=== PATIENT | female | born 1965 | race Caucasian/White ===

== ENCOUNTER 2018-04-19 09:50 | Day surgery (SDC) | payer OTHER ==
[~2018-04-19 09:50] MED LIST: CHONDR SU A NA/HYALUR INTRAOC KIT (SURGICARE) ONE; EPINEPHRINE INJ/PF 1 MG/1 ML AMPULE ONE; KETOROLAC TROMETHAMINE 0.45% 4 DROP/0.4 ML DROPERETTE OD PRN; LIDOCAINE 1%/PHENYLEPHRINE 1.5% 1 ML VIAL ONE
[2018-04-19] MEDS: CYCLOPENTOLATE 0.2%/PHENYLEPHRINE 1% OPH SOLN 2 ML OD PRN ×3 (11:22→11:36)
[2018-04-19] MEDS: BESIFLOXACIN HCL 0.6% OPH SUSP 5 ML BOTTLE OD PRN ×3 (11:22→12:18)
[2018-04-19] MEDS: TETRACAINE HCL 0.5% OPH SOLN 4 ML OD PRN ×3 (11:22→11:52)
[2018-04-19] MEDS: TROPICAMIDE 1% OPH SOLN 3 ML OD PRN ×3 (11:22→11:36)
[2018-04-19] MEDS ORDERED: FENTANYL CITRATE INJ/PF 100 MCG/2 ML AMPUL ONE (11:57)
[2018-04-19] MEDS ORDERED: MIDAZOLAM 2 MG/2 ML INJ ONE (11:57)
--- NOTE | 2018-04-19 13:16 | [facility] OPERATIVE REPORT E ---
[facility] Operative Report NAME: BARTOLOME MARTINEZ AGE: 52Y DATE OF SURGERY: 04/19/2018 ROOM: PREOPERATIVE DIAGNOSIS: CATARACT, RIGHT EYE. POSTOPERATIVE DIAGNOSIS: CATARACT, RIGHT EYE. OPERATION: Cataract extraction with insertion of an IOL of the right eye. SURGEON: LISA GREENBERG M.D. ANESTHESIA: Topical. PROCEDURE: After obtaining appropriate consent, the patient's right eye was prepped and draped in sterile fashion as well as the surgeon in a sterile manner and cataract surgery was started. First a paracentesis blade was used to make a side-port incision. Viscoelastic was used to inflate the anterior chamber. Next a 2.4 mm incision was made with a 2.4 mm blade, clear corneal temporally. A continuous capsulorrhexis was made using a cystotome and Utrata forceps. Following this hydrodissection was carried out to make the lens fully loose and mobile and it was rotated 90 degrees. Following this, a rsmdte-vwf-faclnnj technique was used to phacoemulsify the lens with a CDE of 6.14. The remaining cortex was removed with irrigation/aspiration. Provisc was instilled into the capsular bag to inflate the bag. A SN60WF, 21.5 diopter lens was placed. The remaining viscoelastic material was removed with irrigation/aspiration. Following this, the incision was found to be watertight. Besivance was instilled into the eye and a protective shield was placed over the eye. The patient returned to the postoperative recovery in stable condition. DICTATING PHYSICIAN: LISA GREENBERG M.D. [id number] PHY#: [id number] ID: [id number] JOB#: [id number] ACCT: [id number] cc:LISA GREENBERG M.D. >
--- NOTE | 2018-04-19 13:16 | [facility] DISCHARGE SUMMARY E ---
[facility] Discharge Summary NAME: BARTOLOME MARTINEZ AGE: 52Y ADMITTED: 04/19/2018 DISCHARGED: 04/19/2018 DIAGNOSIS: Cataract, right eye. SUMMARY: This is a 52-year-old female who underwent cataract extraction of the right eye. She underwent surgery because she was having trouble seeing road signs, words on the television, and small print. DISCHARGE INSTRUCTIONS: She should be on a regular diet, no bending at her waist, no heavy lifting. She should use her Besivance, Ilevro, and Durezol at 3 p.m. and 8 p.m. and sleep with a rigid shield. I will see her for her 1-day postoperative tomorrow. DICTATING PHYSICIAN: LISA GREENBERG M.D. [id number] PHY#: [id number] ID: [id number] JOB#: [id number] ACCT: [id number] cc:LISA GREENBERG M.D. >
== END 2018-04-19 13:05 | disposition home or self-care (01) ==
LOC: SC 09:50
PROVIDERS: ATTEND Internal Medicine
DX: H25.13 Age-related nuclear cataract, bilateral (principal); H57.03 Miosis; E03.9 Hypothyroidism, unspecified; E78.00 Pure hypercholesterolemia, unspecified; J45.909 Unspecified asthma, uncomplicated; M19.90 Unspecified osteoarthritis, unspecified site; F17.210 Nicotine dependence, cigarettes, uncomplicated; Z88.8 Allergy status to other drugs, medicaments and biological substances; Z88.3 Allergy status to other anti-infective agents; Z79.51 Long term (current) use of inhaled steroids
CPT/HCPCS: 66984; V2632; J2250; J3490 ×2; J0171; J3010; J2370; 142

== ENCOUNTER 2020-08-15 08:49 | Day surgery (SDC) | payer OTHER ==
[~2020-08-15 08:49] MED LIST changes: +FENTANYL CITRATE INJ/PF 100 MCG/2 ML AMPUL ONE; -KETOROLAC TROMETHAMINE 0.45% 4 DROP/0.4 ML DROPERETTE OD PRN; +KETOROLAC TROMETHAMINE 0.45% 4 DROP/0.4 ML DROPERETTE OS PRN; +MIDAZOLAM 2 MG/2 ML INJ ONE
--- OUTSIDE RECORDS SUMMARY | 2020-08-15 08:53 | XMS REPORT ---
:1965 [facility] [place] [address] [place] [address] Care Team Providers Name Role Phone Ayesha Song Attending Clinician Unavailable Ayesha Song Attending Clinician Unavailable Ioana Maki MD Attending Clinician Unavailable Ayesha Ponce Attending Clinician Unavailable Allergies, Adverse Reactions, Alerts Allergy Name Allergy Status Severity Reaction(s) Onset Inactive Treat ing Comments Type Date Date Clinician SIMVASTATIN Drug Active 2014-02 00:00:0 0 Medications This patient has no known medications. Problems This patient has no known problems. Procedures Procedure Date / Time Performed Performing Clinician Ashley sandoval OFFICE/OUTPATIENT VISIT EST 2019-12-04 10:15:00 OFFICE/OUTPATIENT VISIT EST 2019-06-01 09:15:00 OFFICE/OUTPATIENT VISIT EST 2019-05-03 10:15:00 OFFICE/OUTPATIENT VISIT EST 2018-08-26 13:30:00 OFFICE/OUTPATIENT VISIT EST 2018-02-10 10:30:00 OFFICE/OUTPATIENT VISIT EST 2017-04-28 09:45:00 GENERAL HEALTH PANEL 2014-09-20 12:00:00 ROUTINE VENIPUNCTURE 2014-09-20 12:00:00 LIPID PANEL 2014-09-20 12:00:00 OFFICE/OUTPATIENT VISIT, EST 2014-05-31 10:15:00 ROUTINE VENIPUNCTURE 2014-05-28 15:45:00 LIPID PANEL 2014-05-28 15:45:00 GENERAL HEALTH PANEL 2014-05-28 15:45:00 OFFICE/OUTPATIENT VISIT, EST 2014-02-23 10:00:00 LIPID PANEL 2014-01-18 14:30:00 ROUTINE VENIPUNCTURE 2014-01-18 14:30:00 HEPATIC FUNCTION PANEL 2014-01-18 14:30:00 VITAMIN B-12 2014-01-18 14:30:00 LIPID PANEL 2013-11-09 14:30:00 ROUTINE VENIPUNCTURE 2013-11-09 14:30:00 GENERAL HEALTH PANEL 2013-11-09 14:30:00 Results Test Description Test Time Test Comments Text Results Atomic Results Result Comments LIPID PANEL, STANDARD 2019-12-04 11:36:00 Test Item Value Reference Range Comments CHOL/HDLC RATIO (test code = 49416400) 2.7 (calc) <5.0 NON HDL CHOLESTEROL (test code = 69514989) 189 mg/dL (calc) <130 CHOLESTEROL, TOTAL (test code = 87343980) 298 mg/dL <200 HDL CHOLESTEROL (test code = 34746535) 109 mg/dL > OR = 50 LDL-CHOLESTEROL (test code = 60053759) 170 mg/dL (calc) TRIGLYCERIDES (test code = 52041920) 82 mg/dL <150 COMPREHENSIVE METABOLIC [id number] 11:36:00 Test Item Value Reference Range Comments CARBON DIOXIDE (test code = 14287081) 24 mmol/L 20-32 SODIUM (test code = 93380680) 083711 mmol/L 135-146 POTASSIUM (test code = 47268117) 4.1 mmol/L 3.5-5.3 ALT (test code = 81914402) 28 U/L 6-29 eGFR NON-AFR. COSTA RICAN (test code = 97 mL/min/1.73m2 > OR = 60 67583163) AST (test code = 05567693) 67 U/L 10-35 PROTEIN, TOTAL (test code = 76404387) 7.8 g/dL 6.1-8.1 ALBUMIN/GLOBULIN RATIO (test code = 1.5 (calc) 1.0-2.5 13708921) ALBUMIN (test code = 19435333) 4.74.7 g/dL 3.6-5.1 ALKALINE PHOSPHATASE (test code = 59 U/L 37-153 72406853) GLUCOSE (test code = 39184839) 58 mg/dL 65-99 CREATININE (test code = 25135150) 0.70 mg/dL 0.50-1.05 GLOBULIN (test code = 72817455) 3.1 g/dL (calc) 1.9-3.7 eGFR (test code = 112 mL/min/1.73m2 > OR = 60 79956644) UREA NITROGEN (BUN) (test code = 7 mg/dL 7-25 52519446) BUN/CREATININE RATIO (test code = NOT APPLICABLE (calc) 6-22 31172812) CALCIUM (test code = 55371863) 9.6 mg/dL 8.6-10.4 CHLORIDE (test code = 29498746) 9898 mmol/L 98-110 BILIRUBIN, TOTAL (test code = 0.6 mg/dL 0.2-1.2 37225104) [id number] 11:36:003.993.993.99CBC (INCLUDES DIFF/PLT)2019-12-04 11:36:00 Test Item Value Reference Range Comments ABSOLUTE BASOPHILS (test code = 55537549) 105 cells/uL 0-200 ABSOLUTE EOSINOPHILS (test code = 09084397) 133 cells/uL 15-5 00 MPV (test code = 81931037) 10.9 fL 7.5-12.5 ABSOLUTE NEUTROPHILS (test code = 77653193) 5748 cells/uL 1500 -7800 HEMATOCRIT (test code = 04846649) 41.6 % 35.0-45.0 LYMPHOCYTES (test code = 89430896) 29.3 % MCHC (test code = 53123217) 34.4 g/dL 32.0-36.0 NEUTROPHILS (test code = 07362727) 60.5 % ABSOLUTE MONOCYTES (test code = 23082138) 732 cells/uL 200-95 0 BASOPHILS (test code = 70659265) 1.1 % EOSINOPHILS (test code = 79321769) 1.4 % WHITE BLOOD CELL COUNT (test code = 9.5 Thousand/uL 3.8-10.8 72630564) MCH (test code = 63888386) 35.7 pg 27.0-33.0 HEMOGLOBIN (test code = 66103133) 14.3 g/dL 11.7-15.5 PLATELET COUNT (test code = 16161926) 184 Thousand/uL 140-400 MCV (test code = 29667588) 103.7 fL 80.0-100.0 MONOCYTES (test code = 27098391) 7.7 % RDW (test code = 63875295) 12.0 % 11.0-15.0 ABSOLUTE LYMPHOCYTES (test code = 84726133) 2784 cells/uL 850- 3900 RED BLOOD CELL COUNT (test code = 68577024) 4.01 Million/uL 3.80 -5.10 [id number] 11:47:002.012.01COMPREHENSIVE METABOLIC [id number] 11:47:00 Test Item Value Reference Range Comments GLUCOSE (test code = 55959361) 71 mg/dL 65-99 CALCIUM (test code = 59573071) 9.2 mg/dL 8.6-10.4 AST (test code = 53837399) 34 U/L 10-35 GLOBULIN (test code = 43503091) 2.9 g/dL (calc) 1.9-3.7 ALBUMIN (test code = 84618354) 4.1 g/dL 3.6-5.1 SODIUM (test code = 49399164) 140 mmol/L 135-146 ALBUMIN/GLOBULIN RATIO (test code = 1.4 (calc) 1.0-2.5 93464813) CHLORIDE (test code = 14838814) 104 mmol/L 98-110 eGFR NON-AFR. COSTA RICAN (test code = 87 mL/min/1.73m2 > OR = 60 40702171) POTASSIUM (test code = 86303320) 4.7 mmol/L 3.5-5.3 eGFR (test code = 101 mL/min/1.73m2 > OR = 60 88375828) CREATININE (test code = 78934858) 0.77 mg/dL 0.50-1.05 ALKALINE PHOSPHATASE (test code = 69 U/L 33-130 07578148) ALT (test code = 18951330) 18 U/L 6-29 PROTEIN, TOTAL (test code = 93952341) 7.0 g/dL 6.1-8.1 BUN/CREATININE RATIO (test code = NOT APPLICABLE (calc) 6-22 18658153) BILIRUBIN, TOTAL (test code = 0.7 mg/dL 0.2-1.2 64558452) CARBON DIOXIDE (test code = 17918672) 27 mmol/L 20-32 UREA NITROGEN (BUN) (test code = 7 mg/dL 7-25 67199773) CBC (INCLUDES DIFF/PLT)2019-05-03 11:47:00 Test Item Value Reference Range Comments EOSINOPHILS (test code = 12827605) 2.0 % ABSOLUTE MONOCYTES (test code = 43691851) 409 cells/uL 200-95 0 WHITE BLOOD CELL COUNT (test code = 6.6 Thousand/uL 3.8-10.8 41115442) MCV (test code = 91835988) 105.8 fL 80.0-100.0 ABSOLUTE EOSINOPHILS (test code = 91331767) 132 cells/uL 15-5 00 MCH (test code = 61086548) 36.2 pg 27.0-33.0 RED BLOOD CELL COUNT (test code = 69755446) 3.78 Million/uL 3.80 -5.10 HEMOGLOBIN (test code = 45583177) 13.7 g/dL 11.7-15.5 BASOPHILS (test code = 34960997) 1.1 % ABSOLUTE BASOPHILS (test code = 64477330) 73 cells/uL 0-200 NEUTROPHILS (test code = 45481017) 57.7 % MCHC (test code = 22408406) 34.3 g/dL 32.0-36.0 LYMPHOCYTES (test code = 70712925) 33.0 % PLATELET COUNT (test code = 00204272) 169 Thousand/uL 140-400 ABSOLUTE NEUTROPHILS (test code = 89508249) 3808 cells/uL 1500 -7800 ABSOLUTE LYMPHOCYTES (test code = 77827999) 2178 cells/uL 850- 3900 MONOCYTES (test code = 14885554) 6.2 % MPV (test code = 00691853) 10.8 fL 7.5-12.5 HEMATOCRIT (test code = 62154880) 40.0 % 35.0-45.0 RDW (test code = 31322174) 11.8 % 11.0-15.0 LIPID PANEL, [id number] 11:47:00 Test Item Value Reference Range Comments HDL CHOLESTEROL (test code = 04096020) 9999 mg/dL >50 CHOL/HDLC RATIO (test code = 34848674) 2.6 (calc) <5.0 TRIGLYCERIDES (test code = 91467175) 8787 mg/dL <150 CHOLESTEROL, TOTAL (test code = 93836041) 258 mg/dL <200 LDL-CHOLESTEROL (test code = 69704691) 140 mg/dL (calc) NON HDL CHOLESTEROL (test code = 39241022) 159 mg/dL (calc) <130 [id number] 14:40:005.56CBC (INCLUDES DIFF/PLT)2018-08-26 14:40:00 Test Item Value Reference Range Comments ABSOLUTE LYMPHOCYTES (test code = 71974460) 1433 cells/uL 850- 3900 BASOPHILS (test code = 55853666) 0.9 % MONOCYTES (test code = 53224779) 9.9 % MCV (test code = 21799899) 104.4 fL 80.0-100.0 PLATELET COUNT (test code = 28969208) 175 Thousand/uL 140-400 EOSINOPHILS (test code = 25873327) 0.9 % MPV (test code = 14218439) 10.8 fL 7.5-12.5 HEMOGLOBIN (test code = 12187949) 14.0 g/dL 11.7-15.5 ABSOLUTE MONOCYTES (test code = 71353770) 743 cells/uL 200-95 0 ABSOLUTE BASOPHILS (test code = 24444760) 68 cells/uL 0-200 MCH (test code = 97001268) 36.0 pg 27.0-33.0 ABSOLUTE EOSINOPHILS (test code = 09139760) 68 cells/uL 15-5 00 MCHC (test code = 18021568) 34.5 g/dL 32.0-36.0 NEUTROPHILS (test code = 11902297) 69.2 % ABSOLUTE NEUTROPHILS (test code = 91802025) 5190 cells/uL 1500 -7800 RDW (test code = 54905757) 11.7 % 11.0-15.0 LYMPHOCYTES (test code = 33526844) 19.1 % HEMATOCRIT (test code = 88246253) 40.6 % 35.0-45.0 WHITE BLOOD CELL COUNT (test code = 7.5 Thousand/uL 3.8-10.8 62647343) RED BLOOD CELL COUNT (test code = 31542038) 3.89 Million/uL 3.80 -5.10 COMPREHENSIVE METABOLIC [id number] 14:40:00 Test Item Value Reference Range Comments CHLORIDE (test code = 01365073) 99 mmol/L 98-110 eGFR NON-AFR. COSTA RICAN (test code = 95 mL/min/1.73m2 > OR = 60 49939999) UREA NITROGEN (BUN) (test code = 9 mg/dL 7-25 52279654) CREATININE (test code = 52637802) 0.72 mg/dL 0.50-1.05 ALBUMIN/GLOBULIN RATIO (test code = 1.5 (calc) 1.0-2.5 26388281) BILIRUBIN, TOTAL (test code = 0.7 mg/dL 0.2-1.2 62276598) SODIUM (test code = 39117163) 136 mmol/L 135-146 ALKALINE PHOSPHATASE (test code = 68 U/L 33-130 12593696) GLUCOSE (test code = 82399893) 126 mg/dL 65-99 ALBUMIN (test code = 64163011) 4.2 g/dL 3.6-5.1 PROTEIN, TOTAL (test code = 00920179) 7.0 g/dL 6.1-8.1 BUN/CREATININE RATIO (test code = NOT APPLICABLE (calc) 6-22 05610575) CALCIUM (test code = 06918097) 10.0 mg/dL 8.6-10.4 AST (test code = 94360923) 33 U/L 10-35 POTASSIUM (test code = 09403925) 4.2 mmol/L 3.5-5.3 CARBON DIOXIDE (test code = 27841519) 29 mmol/L 20-32 eGFR (test code = 579231 mL/min/1.73m2 > OR = 6 0 72159741) GLOBULIN (test code = 56151289) 2.8 g/dL (calc) 1.9-3.7 ALT (test code = 51568746) 16 U/L 6-29 LIPID PANEL, [id number] 14:40:00 Test Item Value Reference Range Comments CHOL/HDLC RATIO (test code = 33219967) 2.9 (calc) <5.0 CHOLESTEROL, TOTAL (test code = 31344529) 234 mg/dL <200 NON HDL CHOLESTEROL (test code = 27091585) 153 mg/dL (calc) <130 TRIGLYCERIDES (test code = 32645941) 85 mg/dL <150 LDL-CHOLESTEROL (test code = 93100871) 135 mg/dL (calc) HDL CHOLESTEROL (test code = 59255776) 81 mg/dL >50 COMPREHENSIVE METABOLIC [id number] 09:34:00 Test Item Value Reference Range Comments UREA NITROGEN (BUN) (test code = 10 mg/dL 7-25 02488711) eGFR NON-AFR. COSTA RICAN (test code = 80 mL/min/1.73m2 > OR = 60 76395711) ALT (test code = 40587365) 23 U/L 6-29 CALCIUM (test code = 99807580) 9.6 mg/dL 8.6-10.4 AST (test code = 69688270) 41 U/L 10-35 eGFR (test code = 93 mL/min/1.73m2 > OR = 60 69255175) GLOBULIN (test code = 70796368) 3.2 g/dL (calc) 1.9-3.7 GLUCOSE (test code = 40597035) 77 mg/dL 65-99 ALKALINE PHOSPHATASE (test code = 66 U/L 33-130 55736436) SODIUM (test code = 99602981) 143 mmol/L 135-146 ALBUMIN/GLOBULIN RATIO (test code = 1.4 (calc) 1.0-2.5 86281571) CHLORIDE (test code = 83989775) 106 mmol/L 98-110 ALBUMIN (test code = 39421078) 4.4 g/dL 3.6-5.1 CREATININE (test code = 03012488) 0.83 mg/dL 0.50-1.05 CARBON DIOXIDE (test code = 73056984) 29 mmol/L 20-32 PROTEIN, TOTAL (test code = 47189004) 7.6 g/dL 6.1-8.1 BILIRUBIN, TOTAL (test code = 0.6 mg/dL 0.2-1.2 42760798) POTASSIUM (test code = 84588250) 4.3 mmol/L 3.5-5.3 BUN/CREATININE RATIO (test code = NOT APPLICABLE (calc) 6-22 55746685) LIPID PANEL, [id number] 10:24:00 Test Item Value Reference Range Comments CHOL/HDLC RATIO (test code = 04422111) 2.6 (calc) <5.0 CHOLESTEROL, TOTAL (test code = 45943878) 812749 mg/dL <200 HDL CHOLESTEROL (test code = 27463367) 674496 mg/dL >50 NON HDL CHOLESTEROL (test code = 90348187) 167 mg/dL (calc) <130 TRIGLYCERIDES (test code = 62836421) 124 mg/dL <150 LDL-CHOLESTEROL (test code = 09856387) 142 mg/dL (calc) [id number] 10:24:004.534.53COMPREHENSIVE METABOLIC [id number] 10:24:00 Test Item Value Reference Range Comments ALT (test code = 79417164) 37 U/L 6-29 CHLORIDE (test code = 07828159) 107 mmol/L 98-110 PROTEIN, TOTAL (test code = 17281489) 7.4 g/dL 6.1-8.1 CARBON DIOXIDE (test code = 76003494) 28 mmol/L 20-31 BUN/CREATININE RATIO (test code = NOT APPLICABLE (calc) 6-22 79992889) CREATININE (test code = 28246359) 0.74 mg/dL 0.50-1.05 BILIRUBIN, TOTAL (test code = 0.7 mg/dL 0.2-1.2 28213148) ALKALINE PHOSPHATASE (test code = 54 U/L 33-130 72693144) UREA NITROGEN (BUN) (test code = 9 mg/dL 7-25 93861570) CALCIUM (test code = 24982058) 9.6 mg/dL 8.6-10.4 GLOBULIN (test code = 48322220) 3.1 g/dL (calc) 1.9-3.7 eGFR (test code = 106 mL/min/1.73m2 > OR = 60 02086059) SODIUM (test code = 92268940) 143 mmol/L 135-146 POTASSIUM (test code = 11120580) 4.1 mmol/L 3.5-5.3 GLUCOSE (test code = 59605962) 58 mg/dL 65-99 AST (test code = 18514527) 75 U/L 10-35 ALBUMIN/GLOBULIN RATIO (test code = 1.4 (calc) 1.0-2.5 04481946) eGFR NON-AFR. COSTA RICAN (test code = 92 mL/min/1.73m2 > OR = 60 62788936) ALBUMIN (test code = 26793615) 4.34.3 g/dL 3.6-5.1 CBC (INCLUDES DIFF/PLT)2018-02-24 10:24:00 Test Item Value Reference Range Comments ABSOLUTE LYMPHOCYTES (test code = 09120252) 2484 cells/uL 850- 3900 EOSINOPHILS (test code = 70744103) 2.1 % NEUTROPHILS (test code = 76196632) 54.6 % MPV (test code = 73747097) 10.4 fL 7.5-12.5 ABSOLUTE EOSINOPHILS (test code = 62209319) 151 cells/uL 15-5 00 HEMATOCRIT (test code = 35956687) 39.9 % 35.0-45.0 ABSOLUTE NEUTROPHILS (test code = 89245519) 3931 cells/uL 1500 -7800 HEMOGLOBIN (test code = 67120206) 13.4 g/dL 11.7-15.5 ABSOLUTE MONOCYTES (test code = 40330423) 540 cells/uL 200-95 0 MCH (test code = 81939115) 36.6 pg 27.0-33.0 RED BLOOD CELL COUNT (test code = 52792107) 3.66 Million/uL 3.80 -5.10 LYMPHOCYTES (test code = 59946525) 34.5 % PLATELET COUNT (test code = 28694797) 180 Thousand/uL 140-400 BASOPHILS (test code = 20049476) 1.3 % MONOCYTES (test code = 93255820) 7.5 % MCHC (test code = 19326277) 33.6 g/dL 32.0-36.0 RDW (test code = 48474894) 12.1 % 11.0-15.0 WHITE BLOOD CELL COUNT (test code = 7.2 Thousand/uL 3.8-10.8 80383313) ABSOLUTE BASOPHILS (test code = 91507082) 94 cells/uL 0-200 MCV (test code = 80562372) 109.0 fL 80.0-100.0 [id number] 00:01:00 Test Item Value Reference Range Comments TSH (test code = 267575) 2.59 mIU/L Lipid [id number] 00:01:00 Test Item Value Reference Range Comments LDL Cholesterol (Calc) (test code = 765541) 178 mg/dL <130 VLDL Cholesterol (Calc) (test code = 812480) 20 mg/dL <30 Triglycerides (test code = 527599) 98 mg/dL <150 Cholesterol (test code = 958254) 295 mg/dL 125-200 HDL Cholesterol (test code = 960730) 97 mg/dL >=46 Total Chol/HDL Ratio (test code = 536001) 3.0 Ratio <=5.0 CMP with Estimated [id number] 00:01:00 Test Item Value Reference Range Comments Chloride (test code = 517422) 102 mmol/L 98-110 Est GFR, (test code = 358463) >89 mL/min > =60 Glucose (test code = 277096) 70 mg/dL 65-99 Est GFR, NonAfrican Mongolian (test code = 497065) >89 mL/min >=60 Total Protein (test code = 767596) 7.4 g/dL 6.1-8.1 Calcium (test code = 932142) 9.9 mg/dL 8.6-10.4 Creatinine (test code = 350166) 0.65 mg/dL 0.50-1.05 Potassium (test code = 237080) 4.1 mmol/L 3.5-5.3 BUN (test code = 558140) 8 mg/dL 7-25 AST/SGOT (test code = 023812) 53 U/L 10-35 Bilirubin, Total (test code = 274491) 0.6 mg/dL 0.2-1.2 Alkaline Phosphatase (test code = 245639) 49 U/L 33-130 CO2 (test code = 846258) 28 mmol/L 20-31 Albumin (test code = 062781) 4.4 g/dL 3.6-5.1 Sodium (test code = 523839) 140 mmol/L 135-146 ALT/SGPT (test code = 108842) 27 U/L 6-29 CBC NO Diff (Complete Blood Count)2017-04-28 00:01:00 Test Item Value Reference Range Comments Platelet Count (test code = 104908) 190 K/uL 140-400 MCV (test code = 775891) 108.3 fL 80.0-100.0 Hematocrit (test code = 258681) 41.7 % 35.0-45.0 Hemoglobin (test code = 570025) 13.8 g/dL 11.7-15.5 MCHC (test code = 989803) 33.1 g/dL 32.0-36.0 MCH (test code = 723511) 35.8 pg 27.0-33.0 RDW (test code = 704671) 13.5 % 11.0-15.0 MPV (test code = 931531) 10.3 fL 7.5-12.5 WBC (test code = 512283) 7.6 K/uL 3.8-10.8 RBC (test code = 309431) 3.85 MIL/uL 3.80-5.10 Culture, [id number] 00:00:00 Test Item Value Reference Range Comments COLONY COUNT: (test code = CCT) NO GROWTH FINAL REPORT (test code = FR) NO GROWTH Fecal [id number] 00:01:00 Test Item Value Reference Range Comments LACTOFERRIN (test code = WBCSTL) NEGATIVE LACTOFERRIN (test code = WBCSTL6) NEGATIVE LACTOFERRIN (test code = WBCSTL7) NEGATIVE LACTOFERRIN (test code = WBCSTL8) NEGATIVE Fecal Occult Blood, [id number] 00:01:00 Test Item Value Reference Range Comments Fecal Occult Blood (test code = 298286) NEG Negative Fecal Occult Blood (test code = 4175547) NEG Negativ e Fecal Occult Blood (test code = 1327644) NEG Negativ e Culture, [id number] 00:01:00 Test Item Value Reference Range Comments FINAL REPORT (test code = No FR) Salmonella,Shigella,Campylobacte r,Yersinia,or PRELIM REPORT (test code = No Suspicious Colonies, [place]) Continuing to Hold Culture, [id number] 15:43:00 Test Item Value Reference Range Comments FINAL REPORT (test code = clinically indicated.predominant. FR) Suggest appropriate recollection ifMultiple bacterial morphotypes present, none COLONY COUNT: (test code = 25,000 COLONIES/ML CCT) LIPID [id number] 12:20:00 Test Item Value Reference Range Comments CHD (test code = CHD) 39.44 TGL (test code = TGL) 68 MG/DL 30-200 HDL (test code = HDL) 99 MG/DL 32-96 DLDL (test code = DLDL) 132 MG/DL 100-130 CHOL (test code = CHOL) 251 MG/DL 140-200 [id number] 12:20:00 Test Item Value Reference Range Comments WBC (test code = WBC) 7.7 K/UL 3.6-11.1 MCV (test code = MCV) 111 aH FL 79-95 PLT (test code = PLT) 193 K/UL 165-353 HGB (test code = HGB) 12.7 G/DL 11.4-14.4 RBC (test code = RBC) 3.47 L CU/MM 3.69-4.88 HCT (test code = HCT) 38.6 % 33.3-41.4 MCH (test code = MCH) 36.5 H PQ 26.8-33.2 RDW (test code = RDW) 14.5 % 12.0-15.1 MCHC (test code = MCHC) 32.8 G/DL 33.5-35.5 CHEM [id number] 12:20:00 Test Item Value Reference Range Comments GLU (test code = GLU) 61 MG/DL 70-110 BUN (test code = BUN) 10 MG/DL 7-18 CL (test code = CL) 105 MMOL/L 98-110 NA (test code = NA) 142 MMOL/L 136-145 ALB (test code = ALB) 3.5 G/DL 3.2-4.7 TP (test code = TP) 7.6 G/DL 6.9-8.5 EGFR (test code = EGFR) 80.39 >60.00 BILT (test code = BILT) 0.4 MG/DL 0.1-1.0 ALT (test code = ALT) 18 U/L 9-61 ION GAP (test code = ION GAP) 13 4-16 K (test code = K) 4.3 MMOL/L 3.5-5.1 CA (test code = CA) 8.7 MG/DL 8.5-10.1 GLOB (test code = GLOB) 4.1 1.9-4.5 BUN/CREAT RATIO (test code = BUN/CREAT RATIO) 13 10 -14 CO2 (test code = CO2) 28.8 MMOL/L 21.0-32.0 EGFRAA (test code = EGFRAA) 97.43 >60.00 CR (test code = CR) 0.8 MG/DL 0.4-1.3 ALK PHOS (test code = ALK PHOS) 52 U/L 50-136 AST (test code = AST) 27 U/L 9-37 [id number] 12:20:00 Test Item Value Reference Range Comments TSH (test code = TSH) 2.98 UIU/ML 0.50-5.80 LIPID [id number] 15:00:00 Test Item Value Reference Range Comments CHOL (test code = CHOL) 259 MG/DL 140-200 TGL (test code = TGL) 57 MG/DL 30-200 CHD (test code = CHD) 40.54 HDL (test code = HDL) 105 MG/DL 32-96 DLDL (test code = DLDL) 149 MG/DL 100-130 FREE [id number] 15:00:00 Test Item Value Reference Range Comments FT4 (test code = FT4) 0.61 NG/DL 0.75-1.54 CHEM [id number] 15:00:00 Test Item Value Reference Range Comments ION GAP (test code = ION GAP) 13 4-16 CL (test code = CL) 102 MMOL/L 98-110 GLU (test code = GLU) 82 MG/DL 70-110 ALT (test code = ALT) 23 U/L 9-61 K (test code = K) 4.4 MMOL/L 3.5-5.1 CA (test code = CA) 9.3 MG/DL 8.5-10.1 ALB (test code = ALB) 3.8 G/DL 3.2-4.7 BILT (test code = BILT) 0.5 MG/DL 0.1-1.0 BUN (test code = BUN) 11 MG/DL 7-18 ALK PHOS (test code = ALK PHOS) 61 U/L 50-136 CR (test code = CR) 0.8 MG/DL 0.4-1.3 TP (test code = TP) 7.9 G/DL 6.9-8.5 GLOB (test code = GLOB) 4.1 1.9-4.5 BUN/CREAT RATIO (test code = BUN/CREAT RATIO) 14 10 -14 CO2 (test code = CO2) 27.3 MMOL/L 21.0-32.0 EGFRAA (test code = EGFRAA) 97.55 >60.00 AST (test code = AST) 27 U/L 9-37 NA (test code = NA) 138 MMOL/L 136-145 EGFR (test code = EGFR) 80.49 >60.00 [id number] 15:00:00 Test Item Value Reference Range Comments TSH (test code = TSH) 6.36 UIU/ML 0.50-5.80 [id number] 15:00:00 Test Item Value Reference Range Comments HCT (test code = HCT) 38.2 % 33.3-41.4 HGB (test code = HGB) 12.6 G/DL 11.4-14.4 MCH (test code = MCH) 36.1 H PQ 26.8-33.2 RBC (test code = RBC) 3.48 L CU/MM 3.69-4.88 WBC (test code = WBC) 9.2 K/UL 3.6-11.1 RDW (test code = RDW) 13.9 % 12.0-15.1 MCHC (test code = MCHC) 32.9 G/DL 33.5-35.5 MCV (test code = MCV) 110 aH FL 79-95 PLT (test code = PLT) 193 K/UL 165-353 [id number] 14:37:00 Test Item Value Reference Range Comments B12 (test code = B12) 342 pg/mL 230-1050 LIVER [id number] 14:37:00 Test Item Value Reference Range Comments ALT (test code = ALT) 26 U/L 9-61 ALB (test code = ALB) 3.7 G/DL 3.2-4.7 ALK PHOS (test code = ALK PHOS) 63 U/L 50-136 BILT (test code = BILT) 0.5 MG/DL 0.1-1.0 AST (test code = AST) 35 U/L 9-37 TP (test code = TP) 7.7 G/DL 6.9-8.5 BILD (test code = BILD) 0.1 MG/DL 0.0-0.2 LIPID [id number] 14:37:00 Test Item Value Reference Range Comments CHD (test code = CHD) 49.56 DLDL (test code = DLDL) 95 MG/DL 100-130 TGL (test code = TGL) 37 MG/DL 30-200 CHOL (test code = CHOL) 228 MG/DL 140-200 HDL (test code = HDL) 113 MG/DL 32-96 [id number] 15:46:00 Test Item Value Reference Range Comments ION GAP (test code = ION GAP) 12 4-16 GLU (test code = GLU) 80 MG/DL 70-110 CA (test code = CA) 9.2 MG/DL 8.5-10.1 BUN (test code = BUN) 10 MG/DL 7-18 EGFR (test code = EGFR) 80.67 >60.00 ALK PHOS (test code = ALK PHOS) 62 U/L 50-136 GLOB (test code = GLOB) 4.4 1.9-4.5 CL (test code = CL) 102 MMOL/L 98-110 EGFRAA (test code = EGFRAA) 97.77 >60.00 ALT (test code = ALT) 22 U/L 9-61 NA (test code = NA) 137 MMOL/L 136-145 CR (test code = CR) 0.8 MG/DL 0.4-1.3 AST (test code = AST) 32 U/L 9-37 TP (test code = TP) 8.1 G/DL 6.9-8.5 BUN/CREAT RATIO (test code = BUN/CREAT RATIO) 13 10 -14 CO2 (test code = CO2) 27.6 MMOL/L 21.0-32.0 ALB (test code = ALB) 3.7 G/DL 3.2-4.7 K (test code = K) 4.2 MMOL/L 3.5-5.1 BILT (test code = BILT) 0.7 MG/DL 0.1-1.0 [id number] 15:46:00 Test Item Value Reference Range Comments WBC (test code = WBC) 8.2 K/UL 3.6-11.1 RBC (test code = RBC) 3.67 L CU/MM 3.69-4.88 HGB (test code = HGB) 13.0 G/DL 11.4-14.4 MCHC (test code = MCHC) 32.9 G/DL 33.5-35.5 PLT (test code = PLT) 164 L K/UL 165-353 MCV (test code = MCV) 108 aH FL 79-95 MCH (test code = MCH) 35.4 H PQ 26.8-33.2 HCT (test code = HCT) 39.5 % 33.3-41.4 RDW (test code = RDW) 13.4 % 12.0-15.1 [id number] 15:46:00 Test Item Value Reference Range Comments TSH (test code = TSH) 4.21 UIU/ML 0.50-5.80 LIPID [id number] 15:46:00 Test Item Value Reference Range Comments CHD (test code = CHD) 37.32 TGL (test code = TGL) 52 MG/DL 30-200 HDL (test code = HDL) 103 MG/DL 32-96 DLDL (test code = DLDL) 164 MG/DL 100-130 CHOL (test code = CHOL) 276 MG/DL 140-200 Assessments Condition Name Status Diagnosis Date Treating Clinici an Allergic rhinitis due to pollen Active Hyperlipidemia, unspecified Active Encntr screen mammogram for malignant Active neoplasm of breast Hypothyroidism, unspecified Active Low back pain Active Other chronic pain Active Sacrococcygeal disorders, not elsewhere Active classified Pain in thoracic spine Active Hyperlipidemia, unspecified Active Hypothyroidism, unspecified Active Pleurodynia Active Allergic rhinitis due to pollen Active Hypothyroidism, unspecified Active Hyperlipidemia, unspecified Active Allergic rhinitis due to pollen Active Asymptomatic menopausal state Active Mixed hyperlipidemia Active Hypothyroidism, unspecified Active Unspecified cataract Active Allergic rhinitis due to pollen Active Hyperlipidemia, unspecified Active Hypothyroidism, unspecified Active Encntr screen mammogram for malignant Active neoplasm of breast Allergic rhinitis due to pollen Active Hypothyroidism - Unspecified (acquired) Active Hyperlipidemia (Unspecified) Active Hypothyroidism - Unspecified (acquired) Active Hyperlipidemia (Unspecified) Active Asthma - Unspecified Active Pain - Back (Unspecified) Active Hypothyroidism - Unspecified (acquired) Active Hyperlipidemia (Unspecified) Active Allergic Reaction Active Hyperlipidemia (Unspecified) Active Abnormal - Clinical Findings Active Hyperlipidemia (Unspecified) Active Hypothyroidism - Unspecified (acquired) Active Hypothyroidism Active Asthma Active Hyperlipidemia Active Anxiety Active Hypothyroidism Active Asthma Active Hyperlipidemia Active Anxiety Active Hypothyroidism Active Asthma Active Hyperlipidemia Active Anxiety Active Hypothyroidism Active Asthma Active Hyperlipidemia Active Anxiety Active Hypothyroidism Active Asthma Active Hyperlipidemia Active Anxiety Active Hypothyroidism Active Asthma Active Hyperlipidemia Active Anxiety Active Encounters Start End Encounter Admission Attending Care Care Encounter Date/Time Date/Time Type Type Clinicians Facility Department ID 2019-12-04 2019-12-04 Outpatient Bundle, [facility] BA [id number] 10:15:00 10:15:00 Ayesha Briones [id number] s [id number] and [id number] [facility], 2019-06-01 2019-06-01 Outpatient Bundle, [facility] 0D [id number] 09:15:00 09:15:00 Ayesha Briones [id number] s [id number] and [id number] [facility], 2019-05-03 2019-05-03 Outpatient Bundle, [facility] 78 [id number] 10:15:00 10:15:00 Ayesha Briones???s [id number] and [id number] [facility] [id number] Clini 2018-08-26 2018-08-26 Outpatient Bundle, [facility] 52 [id number] 13:30:00 13:30:00 Ayesha Brinoes [id number] s [id number] and [id number] [facility] [place] 2018-02-10 2018-02-10 Outpatient Bundle, [facility] AC [id number] 10:30:00 10:30:00 Ayesha Briones [id number] s [id number] and [id number] [facility], PHILLIP 2017-04-28 2017-04-28 Outpatient Bundle, [facility] 94 [id number] 09:45:00 09:45:00 Ayesha Briones [id number] s [id number] and [id number] [facility] 2014-09-20 2014-09-20 Outpatient Glynn FISHER, TAD [facility] [id number] 12:00:00 12:00:00 [facility] [id number] [facility], [id number] Inc. [id number] 2014-05-31 2014-05-31 Outpatient Bundle PHILLIP TAD Carrion [id number] 10:15:00 10:15:00 C, [facility] [id number] [facility], [id number] A Inc. [id number] 2014-05-28 2014-05-28 Outpatient Bundle PHILLIP TAD [facility]ion [id number] 15:45:00 15:45:00 C, [facility] [id number] [facility], [id number] A Inc. [id number] 2014-02-23 2014-02-23 Outpatient Bundle PHILLIP Carrion [id number] 10:00:00 10:00:00 C, [facility] [id number] [facility], [id number] Inc. [id number] 2014-01-18 2014-01-18 Outpatient Bundle PHILLIP TAD [facility]ion [id number] 14:30:00 14:30:00 C, [facility] [id number] [facility], [id number] 5 Inc. [id number] 2013-11-09 2013-11-09 Outpatient Bundle PHILLIP TAD [facility]ion [id number] 14:30:00 14:30:00 C, [facility] [id number] [facility], [id number] B Inc. [id number] Social History This patient has no known social history. Vital Signs This patient has no known vital signs.
[2020-08-15] MEDS: TETRACAINE HCL 0.5% OPH SOLN 4 ML OS PRN ×3 (09:03→09:43)
[2020-08-15] MEDS: TROPICAMIDE 1% OPH SOLN 15 ML OS PRN ×3 (09:04→09:26)
[2020-08-15] MEDS: BESIFLOXACIN HCL 0.6% OPH SUSP 5 ML BOTTLE OS PRN ×4 (09:04→10:00)
[2020-08-15] MEDS: CYCLOPENTOLATE 0.2%/PHENYLEPHRINE 1% OPH SOLN 2 ML OS PRN ×3 (09:04→09:26)
[2020-08-15] MEDS: PREDNISOLONE ACETATE 1% OPH SUSP 5 ML OS PRN ×2 (09:55→10:00)
[2020-08-15] MEDS: DORZOLAMIDE HCL 2%/TIMOLOL MALEAT 0.5% OPH SOLN 10 ML OS PRN ×2 (09:55→10:00)
--- NOTE | 2020-08-16 11:33 | Operative Report ---
Operative Report-[facility] Operative Report: DATE OF SURGERY: 08/16/2020 PREOPERATIVE DIAGNOSIS: Cataracts, left eye POSTOPERATIVE DIAGNOSIS: Cataract, left eye OPERATION: Cataract extraction with insertion of an IOL of the left eye. Intraocular Lens Model: [21.5 SN 60 WF] Patient underwent surgery for difficulty seeing road signs SURGEON: Kit Manrique MD ANESTHESIA: Topical PROCEDURE: After obtaining appropriate consent, the patient's left eye was prepped and draped in a sterile fashion as well as the surgeon in the sterile manner and cataract surgery was started. First a paracentesis blade was used to make a side-port incision. Viscoelastic was used to inflate the anterior chamber. Next a 2.4 mm incision was made with a 2.4 mm blade, clear corneal temporarily. A continuous capsulorrhexis was made using a cystotome and Utrata forceps. Following this hydrodissection was carried out to make the lens fully loose and mobile and it was rotated 90 degrees. Following this, a divide and conquer technique was used to phacoemulsify the lens. The remaining cortex was removed with an irrigation/aspiration. Provisc was instilled into the capsular bag to inflate the bag.The intraocular lens was placed. The remaining viscoelastic material was removed with irrigation/aspiration. Following this, the incision was found to be watertight. Besivance and Cosopt was instilled into the eye and a protective shield was placed over the eye. The patient was returned to the postoperative recovery in a stable condition.
== END 2020-08-15 10:32 | disposition home or self-care (01) ==
LOC: SC 08:49
PROVIDERS: ATTEND Internal Medicine
DX: H25.12 Age-related nuclear cataract, left eye (principal); H04.123 Dry eye syndrome of bilateral lacrimal glands; H43.811 Vitreous degeneration, right eye; Z96.1 Presence of intraocular lens; F17.210 Nicotine dependence, cigarettes, uncomplicated; E78.00 Pure hypercholesterolemia, unspecified; E03.9 Hypothyroidism, unspecified; J45.909 Unspecified asthma, uncomplicated; M19.90 Unspecified osteoarthritis, unspecified site
CPT/HCPCS: 66984; 00142; V2632; J2250; J3490 ×2; J0171; J3010; 142